=== PATIENT | female | born 1950 | race Caucasian/White ===

== ENCOUNTER 2023-04-11 14:50 | Emergency (ER) | payer MEDICARE, OTHER, SELFPAY ==
[2023-04-11 15:32] VITALS: BP 183/95
[2023-04-11 16:04] LABS: % Basophils 0.5 % (0-2); % Eosinophils 1.1 % (0-6); % Immature Granulocytes 0.3 % (0-0.5); % Lymphocytes 9.9 % (20.5-51.1); % Monocytes 10.3 % (1.7-9.3); % Neutrophils 77.9 % (42.2-75.2); Absolute Basophils 0.1 10^3/uL (0-0.2); Absolute Eosinophils 0.1 10^3/uL (0-0.7); Absolute Lymphocytes 1.1 10^3/uL (1.2-3.4); Absolute Monocytes 1.2 10^3/uL (0.1-0.6); Absolute Neutrophils 8.9 10^3/uL (1.4-6.5); Hematocrit 42.4 % (37.0-47.0); Hemoglobin 14.1 g/dL (12.0-16.0); Mean Corp Hgb Conc. 33.3 g/dL (33.0-37.0); Mean Corpuscular Volume 87.2 fL (81.0-99.0); Mean Platelet Volume 9.1 fL (7.4-10.4); Nucleated Red Blood Cells % 0 %; Platelet Count 352 10^3/uL (130-400); Red Blood Cell Count 4.86 10^6/uL (4.20-5.40); Red Cell Dist. Width 12.2 % (11.5-14.5); White Blood Cell Count 11.4 10^3/uL (4.8-10.8)
[2023-04-11 16:16] LABS: ALT (SGPT) 32 U/L (0-35); AST (SGOT) 36 U/L (14-36); Albumin 4.1 g/dl (3.5-5.0); Alkaline Phosphatase 82 U/L (38-126); Blood Urea Nitrogen 21 mg/dl (7-17); Calcium 9.9 mg/dl (8.4-10.2); Carbon Dioxide 26 mmol/L (22-30); Chloride 98 mmol/L (98-107); Glucose 119 mg/dl (70-99); Potassium 3.5 mmol/L (3.5-5.1); Sodium 137 mmol/L (135-145); Total Bilirubin 0.8 mg/dl (0.2-1.3); Total Protein 6.5 g/dl (6.3-8.2); eGFR > 60.00
[2023-04-11 18:10] VITALS: BP 169/59
[2023-04-11] MEDS: NSS 1000 IV (18:37)
[2023-04-11] MEDS: BENTYL 20 MG IM (18:38)
[2023-04-11 18:54] LABS: Lactic Acid 1.1 mmol/L (0.7-2.0)
[2023-04-11 19:20] LABS: Magnesium 1.8 mg/dl (1.6-2.3)
[2023-04-11 19:21] VITALS: BP 163/77
[2023-04-11 19:45] VITALS: BP 136/72
[2023-04-11 20:00] VITALS: BP 146/73
[2023-04-11] MEDS: CIPRO 500 MG PO (20:49)
[2023-04-11] MEDS: FLAGYL 500 MG PO (20:49)
--- NOTE | 2023-04-11 21:03 | ED.GENMED ---
History of Present Illness
<Axel Marsh Jr., PA-C - Last Filed: 04/12/23 02:49>
General
Chief Complaint: Abdominal Pain
Source: patient and spouse
Exam Limitations: none
Time Seen by Provider: 04/11/23 18:04
Nursing documentation reviewed up to this point in time: agreed with
Travel History
Have you had any contact with someone who has COVID-19?: No
Do you have any symptoms of coronavirus? Fever > 100 degrees, chills, cough, shortness of breath, sore throat, loss of taste or smell, muscle aches, or headache?: No
History of Present Illness
History of Present Illness:
72-year-old female past medical history of hypertension and GERD presenting to the emergency department today with concerns of intermittent severe abdominal pain as well as nausea diaphoresis and ongoing diarrhea. Has had diarrhea over the past day
but 2 episodes similar over the past few weeks 1 day or so per week. Has had intermittent lower abdominal pain as well. Recently traveled to the [facility] last week. Was also in [place] 2 months ago. Has had nausea no vomiting no fevers
chest pain shortness of breath.
Past History
<Axel Marsh Jr., PA-C - Last Filed: 04/12/23 02:49>
Past History
ED Past Medical History: HTN
ED Past Surgical History:
Social History
Tobacco: Non-smoker
Alcohol: Occasional
Drug: None
Personal:
Living: with family
Review of Systems
<ANA M Stockton Jr. Last Filed: 04/12/23 02:49>
Review of Systems
Allergies reviewed?: Yes
All Other Systems: ROS reviewed and negative except as documented in HPI and ROS
Phy Exam
<ANA M Stockton Jr. Last Filed: 04/12/23 02:49>
Physical Exam
Physical Exam:
GENERAL: Alert , in no apparent distress
EYE: pupils equal and reactive
NECK: Supple, no significant adenopathy.
ENT: o/p clr, mmm.
CARDIAC: Regular rate and rhythm .
LUNGS: Clear breath sounds bilaterally, no acute respiratory distress, no wheezes/rales/rhonchi
ABDOMEN: Soft, without focal tenderness, no r/g, no cvat
NEUROLOGICAL: Alert and oriented, no focal neuro deficits
SKIN: Warm and dry, skin intact.
MUSCULOSKELETAL: No edema, well perfused.
PSYCH: Normal and appropriate interaction.
Course
<Axel Marsh Jr., ANA M - Last Filed: 04/12/23 02:49>
Orders/Labs/Results
Orders:
Orders
04/11/23 15:40
Complete Blood Count/With Diff Urgent
Comprehensive Metabolic Panel Urgent
Magnesium Urgent
Comment: ADD ON
04/11/23 18:28
CT Abd/Pel (IV only)-DH only Urgent
Comment:
Reason For Exam: lower abd pain bloody diarrhea
Dicyclomine HCl [Bentyl] 20 mg IM NOW STA
04/11/23 18:29
0.9% Sodium Chloride 1000 ml [Nss] 1,000 ml IV BOLUS
04/11/23 18:32
Lactic Acid Urgent
04/11/23 18:34
Add On- LAB Urgent
Tests Added?: magnesium level
04/11/23 19:32
STOOL [C difficile Antigen & Toxins] Urgent
KARLA Source: Feces/Stool
Specimen Description:
Date Specimen was Collected: 04/11/23
Time Specimen was Collected: 19:30
Stool Culture Urgent
KARLA Source: Feces/Stool
Specimen Description:
Date Specimen was Collected: 04/11/23
Time Specimen was Collected: 19:31
Yersinia Culture-Stool Urgent
KARLA Source: Feces/Stool
Specimen Description:
Date Specimen was Collected: 04/11/23
Time Specimen was Collected: 19:31
04/11/23 20:39
Ciprofloxacin HCl [Cipro] 500 mg PO ONCE ONE
MetroNIDAZOLE [Flagyl] 500 mg PO NOW STA
04/11/23 21:20
Ondansetron Injectable [Zofran] 4 mg .ROUTE .STK-MED ONE
04/11/23 21:24
Ondansetron Injectable [Zofran] 4 mg IV NOW STA
Abnormal Lab Results
04/11/23
15:40
WBC 11.4 H 10^3/uL
(4.8-10.8)
Absolute Neuts (auto) 8.9 H 10^3/uL
(1.4-6.5)
Absolute Lymphs (auto) 1.1 L 10^3/uL
(1.2-3.4)
Absolute Monos (auto) 1.2 H 10^3/uL
(0.1-0.6)
Neutrophils % 77.9 H %
(42.2-75.2)
Lymphocytes % 9.9 L %
(20.5-51.1)
Monocytes % 10.3 H %
(1.7-9.3)
BUN 21 H mg/dl
(7-17)
Glucose 119 H mg/dl
(70-99)
04/11/23 15:40
04/11/23 15:40
Vital Signs
Initial and Last Documented VS:
Initial Vital Signs
Temp Pulse Resp BP Pulse Ox
98.0 F 83 20 183/95 98
04/11/23 15:32 04/11/23 15:32 04/11/23 15:32 04/11/23 15:32 04/11/23 15:32
Last Documented Vital Signs
Temp Pulse Resp BP Pulse Ox
98.2 F 87 21 146/73 97
04/11/23 19:55 04/11/23 20:45 04/11/23 20:45 04/11/23 20:00 04/11/23 20:45
<Jerson Puri MD - Last Filed: 04/12/23 00:34>
Orders/Labs/Results
Orders:
Orders
04/11/23 15:40
Complete Blood Count/With Diff Urgent
Comprehensive Metabolic Panel Urgent
Magnesium Urgent
Comment: ADD ON
04/11/23 18:28
CT Abd/Pel (IV only)-DH only Urgent
Comment:
Reason For Exam: lower abd pain bloody diarrhea
Dicyclomine HCl [Bentyl] 20 mg IM NOW STA
04/11/23 18:29
0.9% Sodium Chloride 1000 ml [Nss] 1,000 ml IV BOLUS
04/11/23 18:32
Lactic Acid Urgent
04/11/23 18:34
Add On- LAB Urgent
Tests Added?: magnesium level
04/11/23 19:32
STOOL [C difficile Antigen & Toxins] Urgent
KARLA Source: Feces/Stool
Specimen Description:
Date Specimen was Collected: 04/11/23
Time Specimen was Collected: 19:30
Stool Culture Urgent
KARLA Source: Feces/Stool
Specimen Description:
Date Specimen was Collected: 04/11/23
Time Specimen was Collected: 19:31
Yersinia Culture-Stool Urgent
KARLA Source: Feces/Stool
Specimen Description:
Date Specimen was Collected: 04/11/23
Time Specimen was Collected: 19:31
04/11/23 20:39
Ciprofloxacin HCl [Cipro] 500 mg PO ONCE ONE
MetroNIDAZOLE [Flagyl] 500 mg PO NOW STA
04/11/23 21:20
Ondansetron Injectable [Zofran] 4 mg .ROUTE .STK-MED ONE
04/11/23 21:24
Ondansetron Injectable [Zofran] 4 mg IV NOW STA
Abnormal Lab Results
04/11/23
15:40
WBC 11.4 H 10^3/uL
(4.8-10.8)
Absolute Neuts (auto) 8.9 H 10^3/uL
(1.4-6.5)
Absolute Lymphs (auto) 1.1 L 10^3/uL
(1.2-3.4)
Absolute Monos (auto) 1.2 H 10^3/uL
(0.1-0.6)
Neutrophils % 77.9 H %
(42.2-75.2)
Lymphocytes % 9.9 L %
(20.5-51.1)
Monocytes % 10.3 H %
(1.7-9.3)
BUN 21 H mg/dl
(7-17)
Glucose 119 H mg/dl
(70-99)
04/11/23 15:40
04/11/23 15:40
Vital Signs
Initial and Last Documented VS:
Initial Vital Signs
Temp Pulse Resp BP Pulse Ox
98.0 F 83 20 183/95 98
04/11/23 15:32 04/11/23 15:32 04/11/23 15:32 04/11/23 15:32 04/11/23 15:32
Last Documented Vital Signs
Temp Pulse Resp BP Pulse Ox
98.2 F 87 21 146/73 97
04/11/23 19:55 04/11/23 20:45 04/11/23 20:45 04/11/23 20:00 04/11/23 20:45
<Axel Marsh Jr., PA-C - Last Filed: 04/12/23 02:49>
MDM/Problems Addressed
MDM/Problems Addressed:
72-year-old female presenting to the emergency department today with concerns of severe abdominal cramping since last night as well as this morning positive nausea also has significant diarrhea which is clear with some blood as well. Patient
hypertensive upon arrival but otherwise vital signs normal. Blood pressure improving to a normal level without specific treatment other than Bentyl and fluids. White count of 11.4 otherwise labs unremarkable slightly elevated BUN to creatinine
ratio. Was given a liter of fluid and Bentyl with improving symptoms. CT scan confirming colitis without signs of complication. Symptoms potentially consistent with traveler's diarrhea. Plan for treatment with antibiotic. Otherwise stable for
outpatient management. Return precautions given.
<Axel Marsh Jr., PA-C - Last Filed: 04/12/23 02:49>
*Critical Care Note
Total Time (30-74mins, 75-104mins- exclusive of procedures): Not Applicable
ED Attending Note
<Axel Marsh Jr., PA-C - Last Filed: 04/12/23 02:49>
-
Portions of this chart may have been created with voice recognition software.� Occasional wrong word or��sound alike� substitutions may have occurred due to the inherent limitations of voice recognition software.
<Jerson Puri MD - Last Filed: 04/12/23 00:34>
ED Attending Note
Patient seen and examined by attending physician: Yes
ED Attending Note:
Patient presents ED secondary to left-sided abdominal pain, associated with nausea, vomiting, and diarrhea over the past 2 days. However, patient has also recently traveled and has experienced similar symptoms intermittently during that time.
Denies fever or chills. Denies dizziness or weakness. Denies trauma. Denies previous history of similar symptoms. Patient states that diarrhea today contained blood as well. Patient reports having had normal colonoscopy approxi-9 years ago.
Physical Exam
General: no apparent distress, not acutely ill. afebrile
Head: nc/at. eomi
Neck: supple. no meningeal signs.
Abdomen: normal bowel sounds. not tender.
Neuro: alert and oriented. no focal neurological deficits
Skin: no rash
Psychiatric: well kept. interactive and cooperative
Extremities: no edema. no calf tenderness.
History/exam/CT scan concerning for colitis, likely infectious. Patient otherwise remains afebrile, hemodynamically stable, and nontoxic-appearing. Patient will be treated empirically with antibiotics, along with recommendation for PCP follow-up
as an outpatient, or return to ED with worsening symptoms. Patient expresses understanding at time of discharge, to the care of her .
Discharge Plan
Departure
Patient Disposition: Home (Routine Discharge)
Date of Disposition: 04/11/23
Time of Disposition: 21:09
Patient with high blood pressure during this ER visit?: No
Condition: Good
Covid-19: Not Applicable
Discharge Problem:
Diarrhea
Instructions: Acute Diarrhea
Prescriptions:
New
ciprofloxacin HCl 500 mg tablet
500 mg PO BID 7 Days Qty: 14 0RF
metronidazole 500 mg tablet
500 mg PO BID 7 Days Qty: 14 0RF
ondansetron 4 mg tablet,disintegrating
4 mg PO Q8H PRN (Reason: nausea and vomiting) Qty: 7 0RF
dicyclomine 10 mg capsule
10 mg PO QID PRN (Reason: abdominal pain) Qty: 10 0RF
No Action
fexofenadine [Dayanara] 60 MG tablet
60 mg PO DAILY
famotidine [Pepcid AC] 10 MG tablet,chewable
10 mg PO HS
lisinopril 10 MG tablet
10 mg PO DAILY
hydrochlorothiazide 25 MG tablet
25 mg PO DAILY
progesterone micronized [Prometrium] 100 MG capsule
100 mg PO HS
cholecalciferol (vitamin D3) [Vitamin D3] 1,000 UNIT capsule
1,000 unit PO DAILY
rabies vacc,human diploid (PF) [Imovax Rabies Vaccine (PF)] 1 ML recon soln
1 ml IM . DIRECTED Qty: 3 0RF
Rx Instructions:
See Rabies Vaccine Post Exposure Prophylaxis Instruction Sheet for Dosing Instructions
Referrals:
Vladimir Tamayo MD [Active] - Follow up in 5-7 days
Sharon Snow DO [Family Provider] -
Activity Restrictions/Additional Instructions:
You came to the emergency department today with concerns of diarrhea. Here you had a CT scan that did show colitis without signs of specific complication. You had some improvement of symptoms with fluids and Bentyl. Please try to stay hydrated at
home take the prescribed antibiotics each twice daily for the neck 7 days and follow-up closely with GI for any ongoing issues. Return to the emergency department for any worsening, new or concerning symptoms.
Interventions
Interventions:
*Risk Screen - Suicide Last Done: 04/11/23 18:10
*General Assessment Last Done: 04/11/23 18:10
*Neglect/Abuse Screening Last Done: 04/11/23 18:10
ED- Fall Risk Assessment Last Done: 04/11/23 21:57
*ED COVID-19 Vaccine History Last Done: 04/11/23 18:10
*Nursing Disposition Last Done: 04/11/23 21:57
CN-Bbohlb-Nhdibgwyww Assessment Last Done: 04/11/23 18:10
Discharge Date and Time
Discharge Date/Time: 04/11/23 21:57
[2023-04-11] MEDS: ZOFRAN 4 MG IV (21:24)
== END 2023-04-11 21:57 | disposition home or self-care (01) ==
LOC: EMR 14:50
PROVIDERS: Physician Assistant; Student in an Organized Health Care Education/Training Program; EMERGENCY PHYSICIAN Emergency Medicine; FAMILY PHYSICIAN Internal Medicine
DX: R19.7 Diarrhea, unspecified (principal); I10 Essential (primary) hypertension; K21.9 Gastro-esophageal reflux disease without esophagitis
CPT/HCPCS: 99284; 96374; 96372; 96361; 74177; 80053; 83605; 83735; 85025; 87045; 87046; 87077; 87324; 87427; 87449; Q9967

== ENCOUNTER → 2023-06-19 09:30 | Outpatient (REF) | payer MEDICARE, OTHER, SELFPAY ==
[2023-06-19 13:06] LABS: % Basophils 1.2 % (0-2); % Eosinophils 2.7 % (0-6); % Immature Granulocytes 0.3 % (0-0.5); % Lymphocytes 29.5 % (20.5-51.1); % Monocytes 11.5 % (1.7-9.3); % Neutrophils 54.8 % (42.2-75.2); Absolute Basophils 0.1 10^3/uL (0-0.2); Absolute Eosinophils 0.2 10^3/uL (0-0.7); Absolute Lymphocytes 1.8 10^3/uL (1.2-3.4); Absolute Monocytes 0.7 10^3/uL (0.1-0.6); Absolute Neutrophils 3.3 10^3/uL (1.4-6.5); Hematocrit 41.7 % (37.0-47.0); Hemoglobin 13.3 g/dL (12.0-16.0); Mean Corp Hgb Conc. 31.9 g/dL (33.0-37.0); Mean Corpuscular Volume 90.8 fL (81.0-99.0); Mean Platelet Volume 9.7 fL (7.4-10.4); Nucleated Red Blood Cells % 0 %; Platelet Count 360 10^3/uL (130-400); Red Blood Cell Count 4.59 10^6/uL (4.20-5.40); Red Cell Dist. Width 13.1 % (11.5-14.5)
[2023-06-19 13:20] LABS: Urine Albumin Negative (Neg - Trace); Urine Bilirubin 1+ (Negative); Urine Character Clear (Clear); Urine Color Yellow; Urine Glucose Negative (Negative); Urine Ketone Negative (Negative); Urine Leukocyte Trace (Negative); Urine Nitrite Negative (Negative); Urine Occult Blood Negative (Negative); Urine Urobilinogen Negative (Neg - 1+)
[2023-06-19 13:36] LABS: ALT (SGPT) 23 U/L (0-35); AST (SGOT) 28 U/L (14-36); Albumin 4.3 g/dl (3.5-5.0); Alkaline Phosphatase 68 U/L (38-126); Blood Urea Nitrogen 26 mg/dl (7-17); Calcium 10.5 mg/dl (8.4-10.2); Carbon Dioxide 30 mmol/L (22-30); Chloride 99 mmol/L (98-107); Glucose 103 mg/dl (70-99); HDL Cholesterol 72 mg/dl; LDL Cholesterol, Calculated 91 mg/dl; Potassium 4.3 mmol/L (3.5-5.1); Sodium 135 mmol/L (135-145); Total Bilirubin 0.8 mg/dl (0.2-1.3); Total Cholesterol 183 mg/dl (50-199); Total Protein 6.7 g/dl (6.3-8.2); Triglyceride 101 mg/dl (10-149); Very Low Density Lipoprotein 20 mg/dl (0-30); eGFR > 60.00
[2023-06-19 13:52] LABS: Vitamin D, 25-OH*** 31.6 ng/mL (30-80)
[2023-06-19 14:06] LABS: TSH Reflex To Free T4 1.35 uIU/ml (0.47-4.68)
[2023-06-19 14:15] LABS: Urine Mucus Few; Urine Squamous Cell >30 /LPF (Few)
[2023-06-19 14:16] LABS: Urine Hyaline Cast 0-2 /LPF (0-2); Urine White Cell 0-2 /HPF (0-5)
== END ==
LOC: HWLAB 09:30
PROVIDERS: ATTENDING PHYSICIAN Nurse Practitioner Adult Health
DX: E78.00 Pure hypercholesterolemia, unspecified (principal); Z01.818 Encounter for other preprocedural examination; I10 Essential (primary) hypertension; M85.80 Other specified disorders of bone density and structure, unspecified site
CPT/HCPCS: 36415; 80053; 80061; 81003; 81015; 82306; 84443; 85025

== ENCOUNTER → 2023-10-21 13:20 | Outpatient (REF) | payer MEDICARE, OTHER, SELFPAY | LOC: HWWDC 13:20 | PROVIDERS: ATTENDING PHYSICIAN Obstetrics & Gynecology Gynecology; FAMILY PHYSICIAN Nurse Practitioner Adult Health | DX: Z12.31 Encounter for screening mammogram for malignant neoplasm of breast (principal) | CPT/HCPCS: 77063; 77067 ==

== ENCOUNTER → 2023-10-30 10:07 | Outpatient (REF) | payer MEDICARE, OTHER, SELFPAY | LOC: WDC 10:07 | PROVIDERS: ATTENDING PHYSICIAN Obstetrics & Gynecology Gynecology; FAMILY PHYSICIAN Nurse Practitioner Adult Health | DX: R92.8 Other abnormal and inconclusive findings on diagnostic imaging of breast (principal) | CPT/HCPCS: 76642 ==

== ENCOUNTER → 2023-11-24 09:27 | Outpatient (REF) | payer MEDICARE, OTHER, SELFPAY ==
--- NOTE | 2023-11-24 13:39 | OID.BR.INTR ---
[facility]igator - Initial
- -
Date of Contact: 11/24/23
Met with patient. Patient given written information on navigator services available at [facility]. Will follow up as needed per protocol.
== END ==
LOC: WDC 09:27
PROVIDERS: ATTENDING PHYSICIAN Obstetrics & Gynecology Gynecology; FAMILY PHYSICIAN Nurse Practitioner Adult Health
DX: N63.11 Unspecified lump in the right breast, upper outer quadrant (principal)
CPT/HCPCS: 88305; 19083; 88342; 88360; A4648

== ENCOUNTER → 2023-12-07 12:42 | Outpatient (REF) | payer MEDICARE, OTHER, SELFPAY | LOC: WDC 12:42 | PROVIDERS: ATTENDING PHYSICIAN Surgery; FAMILY PHYSICIAN Nurse Practitioner Adult Health | DX: R92.2 Inconclusive mammogram (principal); C50.411 Malignant neoplasm of upper-outer quadrant of right female breast; Z85.3 Personal history of malignant neoplasm of breast | CPT/HCPCS: 76641 ==

== ENCOUNTER → 2023-12-14 13:36 | Outpatient (REF) | payer MEDICARE, OTHER, SELFPAY | LOC: WDC 13:36 | PROVIDERS: ATTENDING PHYSICIAN Surgery | DX: C50.411 Malignant neoplasm of upper-outer quadrant of right female breast (principal) | CPT/HCPCS: 19285; 38792; 76942; A4648; A9541 ==

== ENCOUNTER → 2023-12-15 07:36 | Outpatient (REF) | payer MEDICARE, OTHER, SELFPAY | LOC: WDC 07:36 | PROVIDERS: ATTENDING PHYSICIAN Surgery | DX: C50.411 Malignant neoplasm of upper-outer quadrant of right female breast (principal) | CPT/HCPCS: 88305; 88307; 88332; 76098; 88331; 88333; 88342 ==

== ENCOUNTER → 2024-03-18 14:01 | Outpatient (REF) | payer MEDICARE, OTHER, SELFPAY | LOC: HWRAD 14:01 | PROVIDERS: ATTENDING PHYSICIAN Internal Medicine Hematology & Oncology; FAMILY PHYSICIAN Internal Medicine; REFERRING PHYSICIAN Surgery | DX: Z78.0 Asymptomatic menopausal state (principal); C50.411 Malignant neoplasm of upper-outer quadrant of right female breast | CPT/HCPCS: 77080 ==

== ENCOUNTER → 2024-06-15 13:36 | Outpatient (REF) | payer MEDICARE, OTHER, SELFPAY | LOC: WDC 13:36 | PROVIDERS: ATTENDING PHYSICIAN Surgery | DX: R92.8 Other abnormal and inconclusive findings on diagnostic imaging of breast (principal) | CPT/HCPCS: 76642 ==

== ENCOUNTER → 2024-06-16 13:27 | Outpatient (REF) | payer MEDICARE, OTHER, SELFPAY ==
[2024-06-16 16:44] LABS: Urine Albumin 1+ (Neg - Trace); Urine Bilirubin Negative (Negative); Urine Character Clear (Clear); Urine Color Yellow; Urine Glucose Negative (Negative); Urine Ketone Negative (Negative); Urine Leukocyte 3+ (Negative); Urine Nitrite Negative (Negative); Urine Occult Blood 1+ (Negative); Urine Urobilinogen Negative (Neg - 1+)
[2024-06-16 16:51] LABS: Urine Bacteria Many (Negative); Urine Squamous Cell 0-2 /LPF (Few); Urine White Cell >100 /HPF (0-5)
== END ==
LOC: HWLAB 13:27
PROVIDERS: ATTENDING PHYSICIAN Nurse Practitioner Adult Health; FAMILY PHYSICIAN Nurse Practitioner Adult Health
DX: C50.411 Malignant neoplasm of upper-outer quadrant of right female breast (principal); Z78.0 Asymptomatic menopausal state; R39.89 Other symptoms and signs involving the genitourinary system
CPT/HCPCS: 81003; 81015; 87077; 87086; 87186

== ENCOUNTER → 2024-06-20 11:28 | Outpatient (REF) | payer MEDICARE, OTHER, SELFPAY ==
[2024-06-20 16:09] LABS: Urine Albumin 1+ (Neg - Trace); Urine Bilirubin Negative (Negative); Urine Character Clear (Clear); Urine Color Yellow; Urine Glucose Negative (Negative); Urine Ketone Negative (Negative); Urine Leukocyte 2+ (Negative); Urine Nitrite Negative (Negative); Urine Occult Blood 1+ (Negative); Urine Specific Gravity 1.005 (<1.030); Urine Urobilinogen Negative (Neg - 1+)
[2024-06-20 16:25] LABS: Urine Red Blood Cell 0-2 /HPF (0-2); Urine Squamous Cell 0-2 /LPF (Few); Urine White Cell 90-100 /HPF (0-5)
== END ==
LOC: HWLAB 11:28
PROVIDERS: ATTENDING PHYSICIAN Internal Medicine Hematology & Oncology
DX: C50.411 Malignant neoplasm of upper-outer quadrant of right female breast (principal); Z78.0 Asymptomatic menopausal state; N39.0 Urinary tract infection, site not specified
CPT/HCPCS: 81003; 81015; 87077; 87086

== ENCOUNTER → 2024-07-04 13:04 | Outpatient (REF) | payer MEDICARE, OTHER, SELFPAY ==
[2024-07-04 21:38] LABS: Urine Albumin 1+ (Neg - Trace); Urine Bilirubin Negative (Negative); Urine Character Clear (Clear); Urine Color Yellow; Urine Glucose Negative (Negative); Urine Ketone Negative (Negative); Urine Leukocyte Negative (Negative); Urine Nitrite Negative (Negative); Urine Occult Blood Negative (Negative); Urine Specific Gravity 1.005 (<1.030); Urine Urobilinogen Negative (Neg - 1+)
[2024-07-04 22:12] LABS: Urine Red Blood Cell 0-2 /HPF (0-2); Urine Squamous Cell 0-2 /LPF (Few); Urine White Cell 0-2 /HPF (0-5)
== END ==
LOC: HWLAB 13:04
PROVIDERS: ATTENDING PHYSICIAN Internal Medicine Hematology & Oncology; FAMILY PHYSICIAN Nurse Practitioner Adult Health
DX: C50.411 Malignant neoplasm of upper-outer quadrant of right female breast (principal); Z78.0 Asymptomatic menopausal state; N39.0 Urinary tract infection, site not specified
CPT/HCPCS: 81003; 81015; 87086

== ENCOUNTER → 2024-10-18 13:20 | Outpatient (REF) | payer MEDICARE, OTHER, SELFPAY | LOC: WDC 13:20 | PROVIDERS: ATTENDING PHYSICIAN Surgery; FAMILY PHYSICIAN Nurse Practitioner Adult Health | DX: Z12.31 Encounter for screening mammogram for malignant neoplasm of breast (principal) | CPT/HCPCS: 77063; 77067 ==

== ENCOUNTER → 2024-10-20 12:46 | Outpatient (REF) | payer MEDICARE, OTHER, SELFPAY | LOC: WDC 12:46 | PROVIDERS: ATTENDING PHYSICIAN Family Medicine Geriatric Medicine; FAMILY PHYSICIAN Nurse Practitioner Adult Health | DX: R92.333 Mammographic heterogeneous density, bilateral breasts (principal) | CPT/HCPCS: 76641 ==

== ENCOUNTER → 2024-12-07 14:30 | Outpatient (REF) | payer MEDICARE, OTHER, SELFPAY | LOC: RAD 14:30 | PROVIDERS: ATTENDING PHYSICIAN Nurse Practitioner Adult Health; FAMILY PHYSICIAN Nurse Practitioner Adult Health | DX: C50.411 Malignant neoplasm of upper-outer quadrant of right female breast (principal); Z78.0 Asymptomatic menopausal state | CPT/HCPCS: 72050 ==

== ENCOUNTER → 2025-01-09 14:44 | Outpatient (REF) | payer MEDICARE, OTHER, SELFPAY | LOC: WDC 14:44 | PROVIDERS: ATTENDING PHYSICIAN Family Medicine Geriatric Medicine | DX: R92.8 Other abnormal and inconclusive findings on diagnostic imaging of breast (principal) | CPT/HCPCS: 76642 ==